=== PATIENT | female | born 1985 | race African-American/Black ===

== ENCOUNTER 2019-05-07 12:28 | Emergency (ER) | payer OTHER, BC ==
--- NOTE | 2019-05-07 12:33 | PDOC ---
Rapid Medical Evaluation Chief Complaint: Injury Time Seen by Provider: 05/07/19 12:30 Medical Evaluation: Allergies Allergy/AdvReac Type Severity Reaction Status Date / Time clindamycin Allergy Verified 09/10/15 10:22 05/07/19 12:30 I have performed a brief in-person evaluation of this patient. The patient presents with a chief complaint of: palm and back pain s/p fall Pertinent physical exam findings: Lungs CTAB. No spinal tenderness, crepitus or step-offs. I have ordered the following: urine The patient will proceed to the ED for further evaluation. Discharge Disposition - Diagnosis Back pain - Referrals - Patient Instructions - Post Discharge Activity
[2019-05-07 12:58] VITALS: BP 145/69; PULSE 72; TEMP 98.5; BMI 35.3
--- NOTE | 2019-05-07 13:07 | PDOC ---
History of Present Illness - General Chief Complaint: Injury Stated Complaint: INJURY Time Seen by Provider: 05/07/19 12:30 History Source: Patient - History of Present Illness Initial Comments: 05/07/19 14:07 Chief complaint: Fall Patient is a 34-year-old female with history of hypertension, on meds who states she was at work today, thinks she slipped on an oily surface, and fell injuring both hands and her back. She states she fell forward, then flipped around and hit her back. Patient denies feeling ill before or feeling dizzy or passing out. Patient is ambulatory. GENERAL/CONSTITUTIONAL: No fever, weakness. dizziness HEAD, EYES, EARS, NOSE AND THROAT: No change in vision. No ear pain or discharge. No sore throat. CARDIOVASCULAR: No chest pain RESPIRATORY: No shortness of breath or cough GASTROINTESTINAL: No pain, nausea, vomiting, diarrhea or constipation GENITOURINARY: No dysuria MUSCULOSKELETAL: No neck, +back pain, stem bilateral hand SKIN: No rash NEUROLOGIC: No headache, vertigo, loss of consciousness, or loss of sensation. GENERAL: The patient is awake, alert, and fully oriented, in no acute distress. HEAD: Normal with no signs of trauma. EYES: Pupils equal, round and reactive to light, sclera anicteric, conjunctiva clear. ENT: pharynx: no erythema, no exudate, uvula midline NECK: supple CHEST: clear, nontender, rr ABD: soft, nontender BACK: Mild upper thoracic and lower lumbar tenderness, no: signs of injury EXTREMITIES: Normal range of motion, no edema. NEUROLOGICAL: Cranial nerves II through XII grossly intact, no gross focal abnormalities SKIN: Warm, Dry Past History - Past Medical History Allergies/Adverse Reactions: Allergies Allergy/AdvReac Type Severity Reaction Status Date / Time clindamycin Allergy Verified 05/07/19 12:35 Penicillins Allergy Verified 05/07/19 12:35 Home Medications: Ambulatory Orders Amlodipine Besylate [Norvasc -] 5 mg PO DAILY #30 tablet 11/24/14 Diphenhydramine HCl [Benadryl Capsule -] 25 mg PO Q6H PRN #30 capsule 11/24/14 Valacyclovir HCl [Valtrex -] 1,000 mg PO TID #20 tablet 11/24/14 Anemia: No Asthma: No Cancer: No Cardiac Disorders: No CVA: No COPD: No CHF: No Dementia: No Diabetes: No GI Disorders: No Disorders: No HTN: Yes Hypercholesterolemia: No Liver Disease: No Seizures: No Thyroid Disease: No - Surgical History Abdominal Surgery: No Appendectomy: No Cardiac Surgery: No Cholecystectomy: No Lung Surgery: No Neurologic Surgery: No Orthopedic Surgery: No - Suicide/Smoking/Psychosocial Hx Smoking History: Never smoked Have you smoked in the past 12 months: Yes Number of Cigarettes Smoked Daily: 10 Information on smoking cessation initiated: No 'Breaking Loose' booklet given: 11/22/14 Hx Alcohol Use: No Drug/Substance Use Hx: No Substance Use Type: None Hx Substance Use Treatment: No *Physical Exam - Vital Signs Last Vital Signs Temp Pulse Resp BP Pulse Ox 98.5 F 72 19 145/69 99 05/07/19 12:30 05/07/19 12:30 05/07/19 12:30 05/07/19 12:30 05/07/19 12:30 Medical Decision Making - Medical Decision Making 05/07/19 14:12 Patient is a 34-year-old female with history of hypertension, takes meds who had a mechanical fall injuring her upper, lower back bilateral wrists and hands. Patient is neurologically intact without any head injury, not on any anticoagulation. Patient will get x-rays of the thoracic spine, lumbar spine, bilateral wrists and hands, low likelihood for fracture. X-rays are negative for any acute findings, no incidental findings, Discussed issues, findings, results, applicable medications and treatments and follow-up. All these were understood and all questions were answered *DC/Admit/Observation/Transfer Diagnosis at time of Disposition: Back injury Qualifiers: Encounter type: initial encounter Qualified Code(s): S39.92XA - Unspecified injury of lower back, initial encounter Hand contusion Qualifiers: Encounter type: initial encounter Laterality: unspecified laterality Qualified Code(s): S60.229A - Contusion of unspecified hand, initial encounter - Discharge Dispostion Disposition: HOME Condition at time of disposition: Stable - Referrals - Patient Instructions Additional Instructions: No heavy lifting or bending Apply ice to the area 20 minutes every 2 hours for the next 2 days Continue taking Motrin 600 mg every 6 hours for pain. Return to the nearest ER if numbness, weakness, severe pain, problems with urinating or having bowel movements. Call Dr. Holt for an appointment if symptoms not resolved - Post Discharge Activity
== END 2019-05-07 15:25 | disposition home or self-care (01) ==
LOC: JERFT 12:28
DX: S39.82XA Other specified injuries of lower back, initial encounter (principal); S60.222A Contusion of left hand, initial encounter; S60.221A Contusion of right hand, initial encounter; W01.0XXA Fall on same level from slipping, tripping and stumbling without subsequent striking against object, initial encounter; Y93.89 Activity, other specified; Y92.69 Other specified industrial and construction area as the place of occurrence of the external cause; Y99.0 Civilian activity done for income or pay
CPT/HCPCS: 72070-TC-FY; 72100-TC-FY; 73110-TC-LT-FY; 73110-TC-RT-FY; 73130-TC-LT-FY; 73130-TC-RT-FY; 84703; 99281-25

== ENCOUNTER 2023-09-02 09:25 | Emergency (ER) | payer BC ==
[2023-09-02 09:57] VITALS: BP 139/90; PULSE 82; RESP 18; TEMP 98.3; BMI 32.2
[2023-09-02] MEDS ORDERED: METHOCARBAMOL 500 MG TABLET PO ONE (10:43)
[2023-09-02] MEDS ORDERED: KETOROLAC TROMETHAMINE 30 MG/1 ML VIAL IM ONE (10:43)
[2023-09-02] MEDS ORDERED: LIDOCAINE 5% TOPICAL PATCH TP ONE (10:43)
[2023-09-02] MEDS ORDERED: LIDOCAINE 4% PATCH TP ONE (10:53)
[2023-09-02] MEDS ORDERED: METHOCARBAMOL 500 MG TABLET ONE (10:54)
[2023-09-02] MEDS ORDERED: KETOROLAC TROMETHAMINE 30 MG/1 ML VIAL ONE (10:54)
[2023-09-02] MEDS ORDERED: LIDOCAINE PATCH REMOVAL MC SCH (22:00)
== END 2023-09-02 12:38 | disposition home or self-care (01) ==
LOC: JERFT 09:25
PROC: 3E0233Z Introduction of Anti-inflammatory into Muscle, Percutaneous Approach (ICD-10-PCS; principal; 2023-09-02)
DX: M54.42 Lumbago with sciatica, left side (principal); X50.0XXA Overexertion from strenuous movement or load, initial encounter; Y99.0 Civilian activity done for income or pay
CPT/HCPCS: 99284-25

== ENCOUNTER 2024-08-12 20:34 | Emergency (ER) | payer BC, OTHER ==
[2024-08-12 20:42] VITALS: BP 167/98; PULSE 76; RESP 20; TEMP 98.2; BMI 31.6
[2024-08-12] MEDS ORDERED: IBUPROFEN 600 MG TABLET (FP) PO ONE (22:26)
[2024-08-12] MEDS: IBUPROFEN 600 MG TABLET (FP) PO ONE (22:26)
== END 2024-08-12 22:53 | disposition home or self-care (01) ==
LOC: JER 20:34
DX: M25.512 Pain in left shoulder (principal); M79.602 Pain in left arm; M54.2 Cervicalgia; M54.9 Dorsalgia, unspecified; V43.52XA Car driver injured in collision with other type car in traffic accident, initial encounter; Y92.410 Unspecified street and highway as the place of occurrence of the external cause
CPT/HCPCS: 93005; 93010; 99283-25

== ENCOUNTER 2024-12-24 07:04 | Day surgery (SDC) | payer BC ==
[2024-12-21 10:23] VITALS: BMI 33.2
[2024-12-24] MEDS ORDERED: ACETAMINOPHEN 500 MG TABLET (FP) PO PRN (09:12)
[2024-12-24] MEDS: LIDOCAINE HCL 1% PRESERVATIVE FREE - 30ML VIAL EP ONE (12:21)
[2024-12-24] MEDS: DEXAMETHASONE SOD PHOSPHATE 10 MG/1 ML VIAL IM ONE (12:23)
[2024-12-24] MEDS: IOHEXOL 180 MG/1 ML ML IT ONE (12:23)
[2024-12-24 13:32] VITALS: RESP 18
[2024-12-24 18:56] VITALS: BP 166/77; PULSE 62; TEMP 97.8
== END 2024-12-24 15:40 | disposition home or self-care (01) ==
LOC: JASU-SURG 07:04
PROVIDERS: ATTEND Pain Medicine Pain Medicine
PROC: 3E0R33Z Introduction of Anti-inflammatory into Spinal Canal, Percutaneous Approach (ICD-10-PCS; principal; 2024-12-24 14:30)
DX: M54.12 Radiculopathy, cervical region (principal)
CPT/HCPCS: 36415; 76000-TC-FY; 80053; 81003; 81025; 82306; 83036; 84439; 84443; 84550; 85025; 87086; J1100